=== PATIENT | female | born 1960 | race Caucasian/White ===

== ENCOUNTER 2021-09-08 11:13 | Observation (INO) | payer BC ==
[2021-09-08] VITALS (77 sets, daily range): BP systolic 111–142; BP diastolic 64–107
[~2021-09-08] VITALS: Ht 167.6 cm; Wt 90.0 kg
[2021-09-08] MEDS ORDERED: COZAAR100 MG PO (11:51)
[2021-09-08] MEDS ORDERED: METOPROLOL TART50 MG PO (11:52)
[2021-09-08] MEDS ORDERED: VITAMIN B121000 MCG PO (11:53)
[2021-09-08] MEDS ORDERED: LIPITOR80 M1 PO (11:54)
[2021-09-08] MEDS ORDERED: CENTRUM SILVER1 TA1 PO (11:56)
[2021-09-08 12:08] LABS: ALBUMIN 4.2 g/dL (3.2-5.0); ALKALINE PHOSPHATASE 129 u/l (38-126); ANION GAP 17 (6-22 (CALC)); BILIRUBIN, TOTAL 0.9 mg/dL (0.0-1.4); BUN 15 mg/dL (8-23); BUN/CREATININE RATIO 14 (12-20 (CALC)); CARBON DIOXIDE 21 mmol/l (22-30); CHLORIDE 104 mmol/l (95-108); GFR 56 ML/MIN (>=60 (CALC)); GFR FOR AFR.AMER. > 60 ML/MIN (>=60 (CALC)); HEMATOCRIT 41.5 % (37.0-47.0); HEMOGLOBIN 13.7 g/dl (12.0-16.0); IMMATURE GRANULOCYTES 0.1 % (0.0-5.0); MEAN CELL VOLUME 106.7 fL CALC (80.0-100.0); MEAN CORPUSCULAR HGB 35.2 pG CALC (26.0-32.0); NEUT# 6.44 thou/uL (2.00-7.15); POTASSIUM 4.4 mmol/l (3.5-5.1); RED BLOOD COUNT 3.89 mill/uL (4.20-5.60); RED CELL DISTRI WIDTH 11.9 % (11.5-15.5); SGOT/AST 68 u/l (9-36); SODIUM 139 mmol/l (137-146); TOTAL PROTEIN 7.4 g/dL (6.3-8.2)
[2021-09-08 14:28] LABS: MAGNESIUM 1.5 mg/dL (1.6-2.3)
[2021-09-09] VITALS: BP 112/62
[2021-09-09 04:00] VITALS: BP 121/68
[2021-09-09 05:52] LABS: HEMATOCRIT 36.3 % (37.0-47.0); HEMOGLOBIN 11.8 g/dl (12.0-16.0); MEAN CELL VOLUME 108.7 fL CALC (80.0-100.0); MEAN CORPUSCULAR HGB 35.3 pG CALC (26.0-32.0); MEAN CORPUSCULAR HGB CONC 32.5 g/dL CAL (32.0-36.0); RED BLOOD COUNT 3.34 mill/uL (4.20-5.60); RED CELL DISTRI WIDTH 12.3 % (11.5-15.5)
[2021-09-09 06:49] LABS: ANION GAP 9 (6-22 (CALC)); BUN 11 mg/dL (8-23); BUN/CREATININE RATIO 13 (12-20 (CALC)); CALCULATED LDLCHOLESTEROL 65 mg/dL (62-129 (CALC)); CARBON DIOXIDE 24 mmol/l (22-30); CHLORIDE 110 mmol/l (95-108); CHOLESTEROL HDL RATIO 2.3 (<4.4 (CALC)); CREATININE 0.8 mg/dL (0.5-1.0); GFR > 60 ML/MIN (>=60 (CALC)); GFR FOR AFR.AMER. > 60 ML/MIN (>=60 (CALC)); HDL CHOLESTEROL 88 mg/dL (>=40); POTASSIUM 3.8 mmol/l (3.5-5.1); SODIUM 139 mmol/l (137-146); TOTAL CHOLESTEROL 208 mg/dl (0-199); TOTAL TRIGLYCERIDES 271 mg/dl (30-149); VLDL CHOLESTROL 54 mg/dl (1-41 (CALC))
[2021-09-09 07:53] VITALS: BP 135/77
[2021-09-09 07:55] VITALS: BP 135/77
== END 2021-09-09 11:20 | disposition home or self-care (01) | DRG 310 ==
LOC: ED 11:13 → ED-I 12:06 → ED 12:06 → ED-I 12:20 → ED 13:54 → MS2 13:55
PROVIDERS: Family Medicine; Nurse Practitioner; ADMIT Hospitalist; ATTEND Hospitalist
DX: I47.1 Supraventricular tachycardia (principal); E83.42 Hypomagnesemia; I10 Essential (primary) hypertension; E78.5 Hyperlipidemia, unspecified; Z23 Encounter for immunization; Z20.822 Contact with and (suspected) exposure to COVID-19
CPT/HCPCS: G0378; J1650; J3475